=== PATIENT | male | born 1995 | race African-American/Black ===

== ENCOUNTER 2018-11-28 02:10 | Emergency (ER) | payer OTHER ==
[~2018-11-28] VITALS: Ht 175.3 cm; Wt 73.0 kg
[2018-11-28] MEDS ORDERED: ONDANSETRON HCL 4MG/2ML INJ IV STA (03:09)
[2018-11-28] MEDS ORDERED: SODIUM CHLORIDE 0.9% 1,000 ML IV ONE (03:09)
[2018-11-28] MEDS ORDERED: MORPHINE SULFATE 4 MG/ML CPJ (NOT FOR IM USE) IV STA (03:09)
[2018-11-28 03:24] LABS: HEMATOCRIT. 48.4 % (42.0-52.0); MEAN CORPUSCULAR HEMOGLOBIN 28.3 pg (28.0-32.0); MEAN CORPUSCULAR VOLUME 85.6 fL (80.0-94.0); MEAN PLATELET VOLUME 9.4 fl (7.4-10.4); PLATELET 110 x1000/uL (130-400); RED BLOOD CELL COUNT 5.65 mill/uL (4.7-6.1); RED CELL DISTRIBUTION WIDTH 13.4 % (11.6-14.6)
[2018-11-28 03:30] LABS: CHLORIDE 98 mEq/L (98-107)
[2018-11-28 04:58] LABS: CLARITY URINE CLEAR (CLEAR); COLOR URINE YELLOW (YELLOW); KETONES URINE 2+ (NEGATIVE); LEUKOCYTE ESTERASE URINE NEGATIVE (NEGATIVE); NITRITE URINE NEGATIVE (NEGATIVE); OCCULT BLOOD URINE 2+ (NEGATIVE); PH URINE 6.5 (4.5-8.0); PROTEIN URINE 2+ (NEGATIVE); SPECIFIC GRAVITY URINE 1.026 (1.005-1.030); UROBILINOGEN URINE 0.2 E.U./dL (0.2-1.0)
[2018-11-28] MEDS ORDERED: MORPHINE SULFATE 4 MG/ML CPJ (NOT FOR IM USE) IV ONE (05:00)
[2018-11-28 05:22] LABS: PLATELET ESTIMATE SLIGHTL
[2018-11-28 05:29] LABS: *AMPHETAMINES SCREEN URINE NEGATIVE (NEGATIVE); *BARBITURATES SCREEN URINE NEGATIVE (NEGATIVE); *BENZODIAZEPINES SCREEN URINE NEGATIVE (NEGATIVE); *COCAINE SCREEN URINE NEGATIVE (NEGATIVE)
[2018-11-28 05:30] LABS: CANNABINOID URINE SCREEN PRESUMTIVE POSITIVE (NEGATIVE); METHADONE URINE SCREEN NEGATIVE (NEGATIVE); OPIATES URINE SCREEN PRESUMTIVE POSITIVE (NEGATIVE); PHENCYCLIDINE URINE SCREEN NEGATIVE (NEGATIVE)
[2018-11-28 08:35] VITALS: BP 131/80
== END 2018-11-28 08:48 | disposition short-term general hospital (02) ==
LOC: ER 02:10
DX: K52.9 Noninfective gastroenteritis and colitis, unspecified (principal); R31.9 Hematuria, unspecified; R11.0 Nausea; R50.9 Fever, unspecified
CPT/HCPCS: 36415; 74176; 80053; 80305; 81003; 83690; 85025; 96361; 96374; 96375; 96376; 99285; J2270; J2405; J7030; Z7610